=== PATIENT | male | born 1990 | race Hispanic/Latino ===

== ENCOUNTER 2019-12-20 10:56 | Emergency (ER) | payer OTHER ==
[~2019-12-20] VITALS: Ht 185.4 cm; Wt 101.4 kg
[2019-12-20] MEDS ORDERED: MAPA325T8 PO (11:06)
[2019-12-20 11:49] LABS: BASO % 0.4 % (0.0-1.0); EOS # 0.1 10^3/uL (0.0-0.5); EOS % 1.1 % (0.0-3.0); HEMATOCRIT 48.6 % (42.0-52.0); HEMOGLOBIN 16.2 g/dl (13.5-17.5); LYMPH # 2.7 10^3/uL (1.5-5.0); LYMPH % 32.6 % (24.0-44.0); MEAN CORPUSCULAR HEMOGLOBIN 28.7 pg (27.0-33.0); MEAN CORPUSCULAR HGB CONC 33.3 g/dl (32.0-36.5); MONO # 0.8 10^3/uL (0.0-0.8); MONO % 9.3 % (0.0-5.0); NEUTROPHILS # 4.8 10^3/uL (1.5-8.5); NEUTROPHILS % 56.4 % (36.0-66.0); PLATELET COUNT, AUTOMATED 243 10^3/uL (150-450); RED BLOOD COUNT 5.65 10^6/uL (4.30-6.10); WHITE BLOOD COUNT 8.4 10^3/uL (4.0-10.0)
--- NOTE | 2019-12-20 11:59 | REP ---
LEFT FOOT SERIES: Four views. HISTORY: Pain and swelling. FINDINGS: Four views of the left foot demonstrate overall normal mineralization. No evidence of fracture or subluxation is seen. Joint spaces are preserved. IMPRESSION: No fracture noted. Negative radiographs of the left foot. Electronically Signed by Adarsh Baca MD 12/20/2019 01:29 P
[2019-12-20] MEDS ORDERED: IBUPROFEN 800 MG TAB PO ONE (12:00)
--- NOTE | 2019-12-20 12:00 | REP ---
LEFT ANKLE SERIES: Four views. HISTORY: Pain and swelling. FINDINGS: Four views of the left ankle demonstrate an osteochondral defect lesion in the lateral talar dome. This radiolucency measures 9 mm in right to left dimension. There is mild lateral soft tissue swelling. Ankle mortise is intact. No fracture is seen. Lateral film shows mild soft tissue swelling anteriorly and posteriorly at the tibiotalar articulation. Question joint effusion. 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 Probable joint effusion. No acute bony abnormality. Mild soft tissue swelling. Electronically Signed by Adarsh Baca MD 12/20/2019 01:30 P
[2019-12-20 12:32] LABS: ERYTHROCYTE SEDIMENTATION RATE 12 mm/hr (0-15)
[2019-12-20] MEDS ORDERED: NAPR-837 PO (12:58)
[2019-12-20 13:24] VITALS: BP 143/91
== END 2019-12-20 13:30 | disposition home or self-care (01) ==
LOC: M ED 10:56
DX: M93.272 Osteochondritis dissecans, left ankle and joints of left foot (principal); M79.89 Other specified soft tissue disorders

== ENCOUNTER 2020-02-08 02:39 | Emergency (ER) | payer OTHER ==
[~2020-02-08] VITALS: Ht 185.4 cm; Wt 100.0 kg
[2020-02-08 02:39] VITALS: BP 143/89
[~2020-02-08 02:39] MED LIST: MAPA325T8 PO; NAPR-837 PO
[2020-02-08] MEDS ORDERED: KETOROLAC 60MG 2ML VIAL IM ONE (03:45)
== END 2020-02-08 04:25 | disposition home or self-care (01) ==
LOC: M ED 02:39
DX: M25.461 Effusion, right knee (principal); F17.200 Nicotine dependence, unspecified, uncomplicated
CPT/HCPCS: 99282; J1885

== ENCOUNTER → 2020-02-12 | Outpatient (REF) ==
[2020-02-12 19:08] LABS: APPEARANCE, BODY FLUID HAZY
[2020-02-12 19:17] LABS: CRYSTALS, BODY FLUID CA PYROPHOSPHATE (NONE SEEN); SOURCE, BODY FLUID CRYSTALS LFT KNEE
== END ==
LOC: M LAB REF 17:01
PROVIDERS: ATTEND Physician Assistant
DX: M25.562 Pain in left knee (principal); M79.89 Other specified soft tissue disorders

== ENCOUNTER → 2020-03-08 | Outpatient (REF) | payer OTHER | LOC: M SFHCLUC 11:40 → EEVIPCON 11:40 | PROVIDERS: ATTEND Nurse Practitioner Family | DX: R05 Cough (principal); Z20.828 Contact with and (suspected) exposure to other viral communicable diseases ==

== ENCOUNTER 2021-01-09 18:12 | Emergency (ER) | payer OTHER ==
[~2021-01-09] VITALS: Ht 185.4 cm; Wt 103.4 kg
[2021-01-09 18:13] VITALS: BP 135/90
[2021-01-09 18:55] LABS: BASO # 0.1 10^3/uL (0.0-0.2); BASO % 0.6 % (0.0-1.0); EOS # 0.8 10^3/uL (0.0-0.5); EOS % 8.4 % (0.0-3.0); HEMATOCRIT 47.3 % (42.0-52.0); HEMOGLOBIN 15.4 g/dl (13.5-17.5); LYMPH # 3.6 10^3/uL (1.5-5.0); LYMPH % 35.9 % (24.0-44.0); MEAN CORPUSCULAR HEMOGLOBIN 28.3 pg (27.0-33.0); MEAN CORPUSCULAR HGB CONC 32.6 g/dl (32.0-36.5); MEAN CORPUSCULAR VOLUME 86.8 fl (80.0-96.0); MONO # 0.7 10^3/uL (0.0-0.8); MONO % 6.9 % (2.0-8.0); NEUTROPHILS # 4.8 10^3/uL (1.5-8.5); NEUTROPHILS % 47.9 % (36.0-66.0); PLATELET COUNT, AUTOMATED 280 10^3/uL (150-450); RED BLOOD COUNT 5.45 10^6/uL (4.30-6.10)
--- NOTE | 2021-01-09 19:07 | REP ---
INDICATION: TRAUMA COMPARISON: None. TECHNIQUE: AP, lateral, bilateral oblique and sunrise views. FINDINGS: No acute fracture or dislocation. Osseous structures are intact and normal. Lateral view cannot exclude suprapatellar effusion.. IMPRESSION: No acute fracture or dislocation. <Electronically signed by Zaheer Morris > 01/09/21 [id number]
[2021-01-09 19:10] LABS: C REACTIVE PROTEIN QUANTITATIV 5.39 MG/DL (0.00-0.30); CALCIUM LEVEL 9.2 MG/DL (8.5-10.1); CREATININE FOR GFR 1.57 MG/DL (0.70-1.30); GLOMERULAR FILTRATION RATE 55.1 (>60); POTASSIUM SERUM 4.1 MEQ/L (3.5-5.1)
[2021-01-09 19:22] LABS: ERYTHROCYTE SEDIMENTATION RATE 27 mm/hr (0-15)
[2021-01-09] MEDS ORDERED: ETHYL CHLORIDE AER SPRAY 105 ML TOP ONE (21:30)
[2021-01-09] MEDS ORDERED: NAPR-837 PO (22:19)
[2021-01-09] MEDS ORDERED: NAPROXEN 250 MG TAB PO ONE (22:20)
[2021-01-09 23:01] LABS: SOURCE, BODY FLUID LFT KNEE; SYNOVIAL FLUID COLOR YELLOW (COLORLESS)
== END 2021-01-09 22:41 | disposition home or self-care (01) ==
LOC: M ED 18:12
DX: M25.462 Effusion, left knee (principal)

== ENCOUNTER 2021-04-30 13:40 | Emergency (ER) | payer OTHER ==
[~2021-04-30] VITALS: Ht 188 cm; Wt 98.6 kg
[2021-04-30 13:40] VITALS: BP 135/85
[2021-04-30] MEDS ORDERED: ACET500P3 PO (13:54)
--- NOTE | 2021-04-30 17:16 | REP ---
INDICATION: swelling to ant knee, no known injury COMPARISON: None. TECHNIQUE: Five views right knee. FINDINGS: There is no evidence of acute fracture, dislocation, or intrinsic bone disease.There appears to be anterior soft tissue swelling, more so in the suprapatellar region, medially. There appears to be a moderate effusion. IMPRESSION: No fracture or dislocation. Anterior soft tissue swelling with moderate joint effusion. <Electronically signed by Davide Kincaid > 04/30/21 0010
[2021-04-30 17:37] LABS: BASO # 0.1 10^3/uL (0.0-0.2); BASO % 0.6 % (0.0-1.0); EOS # 0.2 10^3/uL (0.0-0.5); EOS % 2.6 % (0.0-3.0); LYMPH # 2.7 10^3/uL (1.5-5.0); LYMPH % 33.7 % (24.0-44.0); MEAN CORPUSCULAR HEMOGLOBIN 28.4 pg (27.0-33.0); MEAN CORPUSCULAR HGB CONC 32.6 g/dl (32.0-36.5); MEAN CORPUSCULAR VOLUME 87.1 fl (80.0-96.0); MONO # 0.7 10^3/uL (0.0-0.8); MONO % 8.8 % (2.0-8.0); NEUTROPHILS # 4.4 10^3/uL (1.5-8.5); NEUTROPHILS % 54.1 % (36.0-66.0); PLATELET COUNT, AUTOMATED 275 10^3/uL (150-450); RED BLOOD COUNT 5.28 10^6/uL (4.30-6.10); WHITE BLOOD COUNT 8.1 10^3/uL (4.0-10.0)
[2021-04-30 18:01] LABS: BLOOD UREA NITROGEN 15 MG/DL (7-18); C REACTIVE PROTEIN QUANTITATIV 6.15 MG/DL (0.00-0.30); CALCIUM LEVEL 9.1 MG/DL (8.5-10.1); CARBON DIOXIDE LEVEL 33 MEQ/L (21-32); CHLORIDE LEVEL 106 MEQ/L (98-107); CREATININE FOR GFR 1.22 MG/DL (0.70-1.30); GLOMERULAR FILTRATION RATE > 60.0 (>60); GLUCOSE, FASTING 82 MG/DL (70-100); POTASSIUM SERUM 4.1 MEQ/L (3.5-5.1); SODIUM LEVEL 142 MEQ/L (136-145); URIC ACID 7.7 MG/DL (3.5-7.2)
[2021-04-30 18:13] LABS: ERYTHROCYTE SEDIMENTATION RATE 46 mm/hr (0-15)
[2021-04-30] MEDS ORDERED: COLC0.6T47 PO (18:56)
[2021-04-30] MEDS ORDERED: COLCHICINE 0.6 MG TABLET PO ONE (19:00)
== END 2021-04-30 19:10 | disposition home or self-care (01) ==
LOC: M ED 13:40
DX: M10.061 Idiopathic gout, right knee (principal); M25.461 Effusion, right knee; M25.775 Osteophyte, left foot; F17.200 Nicotine dependence, unspecified, uncomplicated